=== PATIENT | female | born 1990 | race Hispanic/Latino ===

== ENCOUNTER 2020-06-01 11:00 | Inpatient (IN) | payer OTHER ==
[~2020-06-01] VITALS: Ht 162.6 cm; Wt 58.1 kg
[2020-06-01] MEDS ORDERED: LIPITOR20 MG PO (11:26)
[2020-06-01] MEDS ORDERED: SODIUM CHLORIDE 0.9% 1000ML 1,000 ML IV STA (11:37)
[2020-06-01] MEDS ORDERED: KETOROLAC TROMETHAMINE 30 MG/ML VIAL IV NR (11:45)
[2020-06-01] MEDS ORDERED: CEFTRIAXONE SOD 1 GM/NS 50 ML 50 ML IV ONE ×2 (11:45→11:52)
[2020-06-01] MEDS ORDERED: SODIUM CHLORIDE FLUSH 10 ML SYR INJ PRN ×2 (11:45→15:30)
[2020-06-01] MEDS ORDERED: ONDANSETRON HCL INJ 2MG/ML 2ML 2 MG/ML VIAL IV NR (11:45)
[2020-06-01] MEDS ORDERED: KETOROLAC TROMETHAMINE 30 MG/ML VIAL ONE (11:52)
[2020-06-01] MEDS ORDERED: ONDANSETRON HCL INJ 2MG/ML 2ML 2 MG/ML VIAL ONE (11:52)
[2020-06-01] MEDS ORDERED: SODIUM CHLORIDE 0.9% 1000ML 1,000 ML ONE (11:52)
--- NOTE | 2020-06-01 12:18 | Emergency Department Note ---
History of Present Illnes History of Present Illness Chief Complaint: LEFT LBP History of Present Illness This is a 29 year old female. was doing well until 2 weeks ago then suprapubic pain, urgency . did a televist with pc and dx pt with uti and rx cipro in which pt finished 1 days ago. then left lbp +similar to kidney stone pain, +n/v Historian: Patient Arrival Mode: Car History limited by: condition of the patient (normal) Director Of Revenue Cycle Management Required: No Onset (how long ago): day(s) (3) Location: see above Quality: see above Radiation: Reports back Severity: severe Onset quality: gradual Duration (how long): day(s) (3) Progression: worsening Chronicity: new Context: Denies recent illness, Denies recent surgery, Denies recent immobilization, Denies recent travel, Denies trauma/injury, Denies new medications, Denies hx of DVT/PE, Denies non-compliance w/ medications Relieving factors: none Exacerbating factors: movement Associated symptoms: Reports nausea/vomiting Treatments prior to arrival: none Past Medical/Family History Physician Review I have reviewed the patient's past medical and family history. Any updates have been documented here. Past Medical History Past Medical History: Kidney Stones, Hyperlipedemia Other Surgery: ovarian cyst 2018 Social History Smoking Cessation: Never Smoker Counseling Performed: No Alcohol Use: None Any Illegal Drug Use: No Physically hurt or threatened: No Other Any Pre-Existing Lines (PICC,: No Review of Systems Review of Systems Constitutional: Reports no symptoms EENTM: Reports no symptoms Cardiovascular: Reports no symptoms Respiratory: Reports no symptoms Gastrointestinal: Reports as per HPI Genitourinary: Reports no symptoms Musculoskeletal: Reports as per HPI Integumentary: Reports no symptoms Neurological: Reports no symptoms Psychological: Reports no symptoms Endocrine: Reports no symptoms Hematological/Lymphatic: Reports no symptoms Physical Exam Related Data Allergies: Coded Allergies: No Known Allergies (Unverified , 06/01/20) Vital signs reviewed: Yes Physical Exam CONSTITUTIONAL Constitutional: Present well-developed, Present well-nourished HENT HENT: Present normocephalic, Present atraumatic, Present oropharynx clear/moist, Present nose normal HENT L/R: Present left ext ear normal, Present right ext ear normal EYES Eyes: Reports PERRL, Reports conjunctivae normal NECK Neck: Present ROM normal PULMONARY Pulmonary: Present effort normal, Present breath sounds normal CARDIOVASCULAR Cardiovascular: Present regular rhythm, Present heart sounds normal, Present capillary refill normal, Present normal rate GASTROINTESTINAL Abdominal: Present soft, Present bowel sounds normal, Present tender (suprapubic tenderness), Present left CVA tenderness; Absent guarding, Absent mass GENITOURINARY Genitourinary: Present exam deferred SKIN Skin: Present warm, Present dry MUSCULOSKELETAL Musculoskeletal: Present ROM normal NEUROLOGICAL Neurological: Present alert, Present oriented x 3, Present no gross motor or sensory deficits PSYCHOLOGICAL Psychological: Present mood/affect normal, Present judgement normal Results Laboratory Lab results reviewed: Yes Laboratory comments cbc normal except wbc=12,000, bmp normal lft normal, ua= + blood/+leuk Imaging Imaging results reviewed: Yes Impressions [place] [address] Patient Name: LILLIANA MICHAEL MR #: [id number] : 1990 Age/Sex: 29/F Req #: [id number] Adm Physician: Ordered by: KALE HAYES Report #: [id number] Location: [facility] Room/Bed: Procedure: [id number] HOPD/CT ABD/PEL WO CONTRAST-HOPD Exam Date: 06/01/20 Exam Time: 1333 REPORT STATUS: Signed EXAM: CT Abdomen and Pelvis WITHOUT contrast INDICATION: low back pain r/o kidney stone COMPARISON: None. TECHNIQUE: Abdomen and pelvis were scanned utilizing a multidetector helical scanner from the lung base to the pubic symphysis without administration of IV contrast. Absence of intravenous contrast decreases sensitivity for detection of focal lesions and vascular pathology. Coronal and sagittal reformations were obtained. Routine protocol was performed. IV CONTRAST: None ORAL CONTRAST: None COMPLICATIONS: None RADIATION DOSE: Total DLP: 527 mGy*cm Estimated effective dose: (DLP x 0.015 x size factor) mSv CTDIvol has been reviewed. It is below the limits set by the Radiation Protocol Committee (RPC). Dose modulation, iterative reconstruction, and/or weight based adjustment of the mA/kV was utilized to reduce the radiation dose to as low as reasonably achievable. FINDINGS: LINES and TUBES: None. LOWER THORAX: Unremarkable HEPATOBILIARY: No focal hepatic lesions. No biliary ductal dilation. GALLBLADDER: No radio-opaque stones or sludge. No wall thickening. SPLEEN: No splenomegaly. PANCREAS: No focal masses or ductal dilatation. ADRENALS: No adrenal nodules KIDNEYS/URETERS: There is a 3 mm obstructive stone in the left ureterovesicular junction with mild left hydroureteronephrosis. There is a 4 mm nonobstructive stone in the inferior pole of the right kidney. GI TRACT: No abnormal distention, wall thickening, or evidence of bowel obstruction. Appendix is normal. PELVIC ORGANS/BLADDER: Unremarkable. LYMPH NODES: No lymphadenopathy. VESSELS: Unremarkable. PERITONEUM / RETROPERITONEUM: No free air or fluid. BONES: Unremarkable. SOFT TISSUES: Unremarkable. IMPRESSION: 1. 3 mm obstructive stone in the left ureterovesicular junction with mild left hydroureteronephrosis. 2. 4 mm nonobstructive stone in the inferior pole of the right kidney. Signed by: Jann Isbell MD on 06/01/2020 2:53 PM Dictated By: JANN ISBELL MD [id number] Transcribed By: QUYNH on 06/01/20 1453 COPY TO: KALE HAYES~ Critical Care Time Comments spoke to dr ree mathews at 1517hrs and will see pt , spoke to medical billing and coding instructor pieter soto(dr macdonald ) at 1522hrs and accepts admission of pt Assessment & Plan Medical Decision Making MDM UTI, KIDNEY STONE Reassessment Reassessment time: 13:30 Reassessment pain relieved Assessment & Plan Final Impression: (1) Ureterolithiasis (2) UTI (urinary tract infection) Depart Disposition: ADMITTED Home Meds Reported Medications Atorvastatin Calcium (LIPITOR) 20 Mg Tablet, 80 MG PO HS, TAB 06/01/20 Medications in the ED Sodium Chloride 10 ml PRN PRN INJ IV SITE FLUSH; Start 06/01/20 at 11:45; Stop 07/01/20 at 11:44 Ceftriaxone Sodium 50 ml @ 100 mls/hr ONCE ONCE IV Last administered on 06/01/20at 11:50; Admin Dose 100 MLS/HR; Start 06/01/20 at 11:45; Stop 06/01/20 at 12:14 Ketorolac Tromethamine 30 mg ONCE IV ; Start 06/01/20 at 11:45; Stop 06/01/20 at 12:59 Ondansetron HCl 4 mg NOW IV ; Start 06/01/20 at 11:45; Stop 06/01/20 at 12:59 Sodium Chloride 1,000 ml @ 1,000 mls/hr Q1H STAT IV Last administered on 06/01/20at 11:50; Admin Dose 1,000 MLS/HR; Start 06/01/20 at 11:37; Stop 06/01/20 at 12:36 Ondansetron HCl 4 mg STK-MED ONCE .ROUTE ; Start 06/01/20 at 11:52; Stop 06/01/20 at 11:48; Status DC Ketorolac Tromethamine 30 mg STK-MED ONCE .ROUTE ; Start 06/01/20 at 11:52; Stop 06/01/20 at 11:48; Status DC Ceftriaxone Sodium 50 ml @ ud STK-MED ONCE IV ; Start 06/01/20 at 11:52; Stop 06/01/20 at 11:48; Status DC Sodium Chloride 1,000 ml @ ud STK-MED ONCE .ROUTE ; Start 06/01/20 at 11:52; Stop 06/01/20 at 11:48; Status DC KALE HAYES Jun 01, 2020 12:18
--- NOTE | 2020-06-01 14:56 | Diagnostic Imaging Report ---
EXAM: CT Abdomen and Pelvis WITHOUT contrast INDICATION: low back pain r/o kidney stone COMPARISON: None. TECHNIQUE: Abdomen and pelvis were scanned utilizing a multidetector helical scanner from the lung base to the pubic symphysis without administration of IV contrast. Absence of intravenous contrast decreases sensitivity for detection of focal lesions and vascular pathology. Coronal and sagittal reformations were obtained. Routine protocol was performed. IV CONTRAST: None ORAL CONTRAST: None COMPLICATIONS: None RADIATION DOSE: Total DLP: 527 mGy*cm Estimated effective dose: (DLP x 0.015 x size factor) mSv CTDIvol has been reviewed. It is below the limits set by the Radiation Protocol Committee (RPC). Dose modulation, iterative reconstruction, and/or weight based adjustment of the mA/kV was utilized to reduce the radiation dose to as low as reasonably achievable. FINDINGS: LINES and TUBES: None. LOWER THORAX: Unremarkable HEPATOBILIARY: No focal hepatic lesions. No biliary ductal dilation. GALLBLADDER: No radio-opaque stones or sludge. No wall thickening. SPLEEN: No splenomegaly. PANCREAS: No focal masses or ductal dilatation. ADRENALS: No adrenal nodules KIDNEYS/URETERS: There is a 3 mm obstructive stone in the left ureterovesicular junction with mild left hydroureteronephrosis. There is a 4 mm nonobstructive stone in the inferior pole of the right kidney. GI TRACT: No abnormal distention, wall thickening, or evidence of bowel obstruction. Appendix is normal. PELVIC ORGANS/BLADDER: Unremarkable. LYMPH NODES: No lymphadenopathy. VESSELS: Unremarkable. PERITONEUM / RETROPERITONEUM: No free air or fluid. BONES: Unremarkable. SOFT TISSUES: Unremarkable. IMPRESSION: 1. 3 mm obstructive stone in the left ureterovesicular junction with mild left hydroureteronephrosis. 2. 4 mm nonobstructive stone in the inferior pole of the right kidney. Signed by: Michele Buckley MD on 06/01/2020 2:53 PM
--- NOTE | 2020-06-01 15:42 | NUR ---
urine cx collected
--- NOTE | 2020-06-01 16:24 | NUR ---
[facility] called to transport pt to room 212.
--- NOTE | 2020-06-01 16:26 | NUR ---
[facility] is 1.5 hours
--- NOTE | 2020-06-01 16:34 | NUR ---
Report to HARDEEP Butcher
--- NOTE | 2020-06-01 18:02 | NUR ---
RCD PT FROM [facility] BY BED PT IS ALERT AND ORIENTED PT RESTING ON BED VITALS CHECKED ,IV PATENT AND RUNNING NS 125 ,NO C/O PAIN ,ADMISSION ASSESSMENT AND HISTORY DONE INSTRUCTED THE PT AND FAMILY ABOUT HOSPITAL POLICY AND ROUTINE BED LOW AND LOCKED CALL LIGHT IN REACH ,
[2020-06-01 18:05] VITALS: BP 112/58
[2020-06-01] MEDS: SODIUM CHLORIDE 0.9% 1000ML 1,000 ML IV SCH (18:14)
[2020-06-01 18:31] VITALS: BP 112/58
[2020-06-01 18:35] VITALS: BP 112/50
--- NOTE | 2020-06-01 18:42 | NUR ---
PAGED DR JAMES AND TALKED THE CONSULTATION
--- NOTE | 2020-06-01 18:53 | NUR ---
PT RESTING ON BED BED SIDE REPOT GIVEN TO ONCOMING NURSE
[2020-06-01 20:00] VITALS: BP 111/75
[2020-06-01] MEDS: ATORVASTATIN 40 MG TAB PO SCH (20:03)
[2020-06-01] MEDS: ONDANSETRON HCL INJ 2MG/ML 2ML 2 MG/ML VIAL IV PRN (20:03)
[2020-06-01] MEDS: ACETAMINOPHEN 325 MG TAB PO PRN (20:03)
[2020-06-01] MEDS: MORPHINE SULFATE 2 MG/ML SYR 1ML IV PRN (20:03)
[2020-06-01] MEDS ORDERED: HYDRALAZINE HCL 20 MG/ML VIAL IV PRN (20:45)
[2020-06-01] MEDS ORDERED: POLYETHYLENE GLYCOL 3350 17 GM PACK PO PRN (20:45)
[2020-06-01] MEDS ORDERED: TEMAZEPAM 7.5 MG CAP PO PRN (20:45)
[2020-06-01 21:00] VITALS: BP 111/75
[2020-06-01] MEDS ORDERED: TEMAZEPAM 15 MG CAP PO PRN (21:00)
--- NOTE | 2020-06-01 22:29 | History and Physical ---
PRIMARY CARE PHYSICIAN: Dr. Shawn Black. CONSULTING PHYSICIANS: Dr. Bob Ballard with Urology. CHIEF COMPLAINT: UTI, left flank pain. HISTORY OF PRESENT ILLNESS: The patient is a 29-year-old female admitted through [facility] ER with complaints of left flank pain, radiating to the left lower quadrant since 05/31, and vomited thrice today. The patient reports constant urge to void. The patient saw her PCP 2 weeks ago; was prescribed Cipro 500 mg every 12 hours x3 days, which she finished. She reports Cipro helped some, but she still had flank pain and was having to alternate Tylenol and ibuprofen every 6 hours for relief. She went to the [facility] due to continued unresolved pain. PAST MEDICAL HISTORY: Kidney stones, hyperlipidemia, migraines. PAST SURGICAL HISTORY: Ovarian cyst in 2018. FAMILY HISTORY: Father had hyperlipidemia, hypertension, CAD/CABG. Mother had hyperlipidemia and lung cancer. SOCIAL HISTORY: The patient lives with her . She works as a teacher. She denies any previous use of tobacco, alcohol, or illicit drugs. ALLERGIES: NO KNOWN ALLERGIES. HOME MEDICATIONS: Atorvastatin 80 mg daily, Aimovig for migraines self-injection monthly. REVIEW OF SYSTEMS: Fourteen-point review of systems was completed and the patient denies any problems with the following systems; constitutional, eyes, ears, nose, throat, respiratory, psychiatric, integumentary, cardiovascular, musculoskeletal, neurological, endocrine, immunological, hematologic/lymphatic. CONSTITUTIONAL: The patient denies chills or fever. She has had a weight gain of about 4 pounds recently. GENITOURINARY: As per history of present illness. Currently denies any pain. GASTROINTESTINAL: Vomited thrice today. Last bowel movement was yesterday. HEMATOLOGIC: Currently on menses. PHYSICAL EXAMINATION: VITAL SIGNS: Temperature 98.8, pulse 81, blood pressure 112/58, respirations 16, oxygen saturation 100% on room air. Height 5 feet 0. Weight 127 pounds, BMI 24.8. GENERAL: Supine in bed, in no acute distress, currently seen in room 212. LUNGS: Clear to auscultation. Respiratory pattern even and unlabored. No supplemental oxygen. HEENT: EOMI. Oropharynx clear. NECK: Supple. No lymphadenopathy, thyromegaly, or JVD. CARDIOVASCULAR: Regular rate and rhythm. No murmur. Normal saline infusing at 125 mL an hour into a peripheral IV. ABDOMEN: Bowel sounds positive. Soft, nontender. EXTREMITIES: With no pitting edema. No clubbing, cyanosis, or signs of DVT. NEUROLOGICAL: GCS 15. Nonfocal. LABORATORY DATA: Urinalysis with specific gravity greater than or equal to 1.03, moderate amount of blood, pH 6.0, protein 30 mg/dL. Negative for nitrites, trace amount of leukocyte esterase. Sodium 142, potassium 3.9, chloride 107, CO2 of 28, glucose 128, calcium 9.3, BUN 15, creatinine 0.8, alkaline phosphatase 63, ALT 22, AST 23, total bilirubin 0.7, albumin 3.9, total protein 7.2. WBC is 12.2, hemoglobin 13.3, hematocrit 41.6, and platelets 249. Urine culture and sensitivity has been collected, results are pending. IMAGING/OTHER: CT of the abdomen and pelvis showed 3 mm obstructive stone in the left ureterovesicular junction with mild left hydroureteronephrosis, 4 mm nonobstructive stone in the inferior pole of the right kidney. No 12-lead EKG results are noted. ASSESSMENT AND PLAN: 1. Acute urinary tract infection with leukocytosis (present on admission); failed outpatient treatment. The patient failed outpatient treatment with Cipro. Continue Rocephin daily and IV fluids of normal saline at 125 mL an hour. Follow up on final urine culture and sensitivity results. WBC is 12.2, currently afebrile. 2. Obstructive renal calculus, left ureterovesicular junction, and nonobstructive renal calculus in the inferior pole of right kidney, hematuria. Urology consulted. Strain urine. The patient is currently n.p.o. after midnight for any urological procedure tomorrow. Continue IV fluids. 3. Acute left flank pain. Pain control with morphine 4 mg q.4 hours p.r.n. 4. Vomiting. The patient denies nausea currently. Continue p.r.n. Zofran. Continue IV fluids for rehydration. 5. Hyperlipidemia. Resume home dose of Lipitor. We will get lipid panel. 6. Hyperglycemia. Blood glucose 128. No history of diabetes. We will check hemoglobin A1c level in the morning. 7. Prophylaxis, Pepcid, ambulatory. Inpatient, billing code [id number], time spent greater than 60 minutes. Dictated by Ronald Boone, PATENT ENGINEER MD AMRITA Maldonado/ZEYNEP /[id number]
[2020-06-01] MEDS: CEFTRIAXONE SOD 1 GM/NS 50 ML 50 ML IV SCH (23:35)
[2020-06-02] VITALS (7 sets, daily range): BP systolic 111–127; BP diastolic 63–86
[2020-06-02] MEDS: SODIUM CHLORIDE 0.9% 1000ML 1,000 ML IV SCH ×4 (02:47→23:29)
[2020-06-02 06:27] LABS: CHOL/HDL RATIO 3.3 (3.0-3.6); MAGNESIUM 1.6 MG/DL (1.3-2.1)
[2020-06-02 06:34] LABS: THYROID STIMULATING HORMONE 1.217 uIU/mL (0.350-4.940)
[2020-06-02 06:44] LABS: BASOPHILS % 0.3 % (0.0-1.0); EOSINOPHILS # (AUTO) 0.1 (0.0-0.4); EOSINOPHILS % 1.7 % (0.0-6.0); HEMOGLOBIN 10.5 g/dL (12.0-16.0); LYMPHOCYTES % 46.9 % (18.0-39.1); MEAN CORPUSCULAR HEMOGLOBIN 29.1 pg (28-32); MEAN CORPUSCULAR HGB CONC 33.9 g/dL (31-35); MEAN CORPUSCULAR VOLUME 85.9 fL (81-99); MONOCYTES # (AUTO) 0.4 (0.2-0.8); MONOCYTES % 6.2 % (4.4-11.3); NEUTROPHILS # (AUTO) 2.8 (2.1-6.9); NEUTROPHILS % 44.7 % (38.7-80.0); PLATELET COUNT 219 x10e3/uL (140-360); RED BLOOD COUNT 3.61 x10e6/uL (3.6-5.1); RED CELL DISTRIBUTION WIDTH 12.6 % (11.7-14.4)
[2020-06-02 06:53] LABS: ANION GAP 11.9 mmol/L (8-16); BLOOD UREA NITROGEN 8 mg/dL (7-26); BUN/CREATININE RATIO 13 (6-25); CARBON DIOXIDE 22 mmol/L (22-29); CHLORIDE 110 mmol/L (98-107); CREATININE, SERUM 0.62 mg/dL (0.57-1.11); EST GLOMERULAR FILTRATION RATE > 60 ML/MIN (60-); GLUCOSE 101 mg/dL (74-118); POTASSIUM 3.9 mmol/L (3.5-5.1); SODIUM 140 mmol/L (136-145)
--- NOTE | 2020-06-02 07:15 | NUR ---
RCD PT AT BED PT IS ALERT AND ORIENTED PT RESTING ON BED IV PATENT BED LOW AND LOCKED CALL LIGHT IN REACH
--- NOTE | 2020-06-02 07:15 | NUR ---
PAGED DR JAMES TO CLARIFY THE NPO
[2020-06-02] MEDS: FAMOTIDINE 20 MG/2 ML VIAL IV SCH ×2 (08:24→17:00)
[2020-06-02] MEDS: DOCUSATE SODIUM 100 MG CAP PO SCH ×2 (09:00→17:00)
[2020-06-02] MEDS: MORPHINE SULFATE 2 MG/ML SYR 1ML IV PRN (09:38)
[2020-06-02] MEDS: ONDANSETRON HCL INJ 2MG/ML 2ML 2 MG/ML VIAL IV PRN ×2 (09:39→18:00)
[2020-06-02] MEDS: CEFTRIAXONE SOD 1 GM/NS 50 ML 50 ML IV SCH ×2 (11:30→23:29)
[2020-06-02] MEDS ORDERED: MAGNESIUM SULFATE 2GM/50ML 50 ML IV ONE (12:00)
--- NOTE | 2020-06-02 13:21 | Consultation ---
DATE OF CONSULTATION: 06/02/2020 Urology Consultation REASON FOR CONSULTATION: Obstructive uropathy. HISTORY OF PRESENT ILLNESS: Stephania Lovell is a 29-year-old woman, who had a previous history of obstructive ureterolithiasis. The patient passed that stone, gave it to her prior urologist. She was apparently did not have ongoing followup and never had a 24-hour urine test as metabolic stone risk profile. The patient had left-sided flank pain, radiating to the left lower quadrant as well as urgency and urinary urgency, reported the emergency room, was found to have obstructive left ureterolithiasis and was subsequently admitted. The patient denies hematuria and dysuria and denies having any fevers. PAST MEDICAL AND SURGICAL HISTORY: 1. 1, para 1 by spontaneous vaginal delivery. 2. Right ovarian cyst, status post laparoscopic management. SOCIAL HISTORY: The patient denies smoking ethanol or drug use. She works at a high school. ALLERGIES: NONE KNOWN. CURRENT MEDICATIONS: Please refer to the MAR. REVIEW OF SYSTEMS: Discussed as above in the history of present illness and past medical history, otherwise negative for all systems. PHYSICAL EXAMINATION: GENERAL: Healthy-appearing 29-year-old woman, lying in bed, in no apparent distress. She is currently afebrile. VITAL SIGNS: Currently stable. ABDOMEN: Soft, nondistended, nontender without current costovertebral angle tenderness. Kidneys not palpable without hepatosplenomegaly. No obvious evidence of hernia. For the remaining physical examination systems, please refer to the admission history and physical in chart. LABORATORY STUDIES: CT scan of the abdomen and pelvis showed a left 3 mm intramural UVJ stone and a 4 mm right lower pole stone. Urine culture is pending and preliminary COVID test is currently pending. White blood cell count is 6290, hemoglobin 10.5, platelets 219,000. The patient's creatinine 0.62. Her calcium is low at 8.0. ASSESSMENT: 1. Left ureterolithiasis. 2. Left hydroureteronephrosis. 3. Right 4 mm lower pole stone. 4. Left renal colic. 5. Anemia. 6. Hypocalcemia. PLAN: 1. One stone passage trial due to the fact that she has passed previous stones. 2. Should the patient pass her stone, she would be okay to discharge her home with outpatient followup for right ESWL with cystoscopy and retrogrades. 3. The patient will need metabolic stone workup including a 24-hour urine when she is at her normal state of health and her stones have been managed. 4. Defer the hematological and electrolyte abnormalities to the primary team. 5. Strain all urine. 6. I will order to recheck the labs in the a.m. Thank you much for involving us in care of your patient. We will be happy to follow along with you as well as outpatient. Bob MD Elio OH/MODL /[id number] cc: Shawn Black III, MD
[2020-06-02] MEDS: ACETAMINOPHEN 325 MG TAB PO PRN (14:16)
--- NOTE | 2020-06-02 18:41 | NUR ---
PT RESTING ON BED BED SIDE REPORT GIVEN TO ONCOMING NURSE
--- NOTE | 2020-06-02 19:43 | Progress Note ---
DATE: CONSULTING PHYSICIAN: Bob Ballard MD with Urology. SUBJECTIVE: The patient is supine in bed with at bedside. The patient states earlier today she had left flank pain rated 4-5 on a scale of 0-10. After receiving pain medication, she now has no pain. She still has urgency. No chills. No dysuria. OBJECTIVE: VITAL SIGNS: Temperature 98.0, pulse 82, blood pressure 119/85, respirations 18, and oxygen saturation 99% on room air. Intake and output 1560 mL in, 300 mL out. GENERAL: Supine, no acute distress. LUNGS: Clear to auscultation. Respiratory pattern even and unlabored. HEENT: EOMI. NECK: Supple. CARDIOVASCULAR: Regular rate and rhythm. No murmur. Normal saline infusing at 75 mL an hour through a peripheral IV. ABDOMEN: Bowel sounds positive. Soft. Mild tenderness to gentle palpation. EXTREMITIES: No pitting edema. No clubbing, cyanosis, or signs of DVT. NEUROLOGICAL: GCS 15. Nonfocal. LABORATORY DATA: WBC 6.29 (12.2), hemoglobin 10.5, hematocrit 31, platelets 219, neutrophils 44.7%. Sodium 140, potassium 3.9, chloride 110, CO2 22, BUN 8, creatinine 0.62, glucose 101, hemoglobin A1c 4.8%, phosphorus 3.0, magnesium 1.6. TSH 1.217, triglycerides 90, cholesterol 197, LDL 120, HDL 59. 06/01 frederick virus PCR remains pending. Preliminary urine culture and sensitivity culture is in process. Re-intubation is required. IMAGING/OTHER: No new imaging studies. ASSESSMENT/PLAN: 1. Urinary tract infection with leukocytosis (POA); failed outpatient treatment. WBCs 6.29 (12.2). Continue Rocephin and IV fluids, normal saline rate has been decreased from 125 to 75 mL an hour. BUN 8, creatinine 0.62, afebrile. 2. Obstructive renal calculus, left UVJ and nonobstructive renal calculus in the inferior pole of the right kidney, hematuria. Urology following. Appreciate recommendations, stone passage trial. Urine is to be strained. No urological procedures today and patient is on a regular diet. 3. Acute left flank pain, improving. Continue pain control with morphine 4 mg IV every 4 hours p.r.n. 4. Vomiting, resolved. The patient reports no further vomiting. Continue Zofran p.r.n. and IV fluids. 5. Hyperlipidemia. Home dose of Lipitor continues. 6. Hyperglycemia, resolved. Serum blood glucose 101 (128). Hemoglobin A1c 4.8%. 7. Prophylaxis. Pepcid, ambulatory. Inpatient, billing code [id number], time spent greater than 35 minutes. Dictated by Ronald Boone, LUCIANA Jericho Gramajo MD [facility]/MODL /[id number]
[2020-06-02] MEDS: ATORVASTATIN 40 MG TAB PO SCH (20:00)
[2020-06-03] VITALS (8 sets, daily range): BP systolic 111–124; BP diastolic 74–79
[2020-06-03 06:09] LABS: BASOPHILS % 0.5 % (0.0-1.0); EOSINOPHILS # (AUTO) 0.1 (0.0-0.4); EOSINOPHILS % 1.7 % (0.0-6.0); HEMATOCRIT 32.5 % (34.2-44.1); LYMPHOCYTES # (AUTO) 2.8 (1.0-3.2); LYMPHOCYTES % 42.6 % (18.0-39.1); MEAN CORPUSCULAR HEMOGLOBIN 29.3 pg (28-32); MEAN CORPUSCULAR HGB CONC 33.8 g/dL (31-35); MEAN CORPUSCULAR VOLUME 86.7 fL (81-99); MONOCYTES # (AUTO) 0.4 (0.2-0.8); MONOCYTES % 6.1 % (4.4-11.3); NEUTROPHILS # (AUTO) 3.2 (2.1-6.9); NEUTROPHILS % 48.8 % (38.7-80.0); PLATELET COUNT 209 x10e3/uL (140-360); RED BLOOD COUNT 3.75 x10e6/uL (3.6-5.1); RED CELL DISTRIBUTION WIDTH 12.6 % (11.7-14.4)
[2020-06-03 06:35] LABS: ANION GAP 10.9 mmol/L (8-16); BLOOD UREA NITROGEN 6 mg/dL (7-26); BUN/CREATININE RATIO 10 (6-25); CALCIUM 8.4 mg/dL (8.4-10.2); CARBON DIOXIDE 25 mmol/L (22-29); CHLORIDE 110 mmol/L (98-107); CREATININE, SERUM 0.62 mg/dL (0.57-1.11); EST GLOMERULAR FILTRATION RATE > 60 ML/MIN (60-); GLUCOSE 94 mg/dL (74-118); MAGNESIUM 1.7 MG/DL (1.3-2.1); POTASSIUM 3.9 mmol/L (3.5-5.1); SODIUM 142 mmol/L (136-145)
--- NOTE | 2020-06-03 07:00 | NUR ---
BEDSIDE SHIFT REPORT RECEIVED FROM THE GASOLINE PUMP INSTALLER RN. EDUCATED PT ABOUT FALL PRECAUTIONS. PT VERBALIZED UNDERSTANDING. CALL LIGHT WITH IN EASY REACH. INSTRUCTED PT TO USE CALL LIGHT FOR ALL THE NEEDS. BED IS LOW AND LOCKED. SIDE RAILS X2. ALL SAFETY MEASURES IN PLACE. PT DENIES NEEDS AT THIS TIME.
[2020-06-03] MEDS: SODIUM CHLORIDE 0.9% 1000ML 1,000 ML IV SCH ×3 (07:04→23:18)
[2020-06-03] MEDS: FAMOTIDINE 20 MG/2 ML VIAL IV SCH ×2 (09:22→17:14)
[2020-06-03] MEDS: DOCUSATE SODIUM 100 MG CAP PO SCH ×2 (09:22→17:14)
[2020-06-03] MEDS: CEFTRIAXONE SOD 1 GM/NS 50 ML 50 ML IV SCH ×2 (12:13→23:18)
--- NOTE | 2020-06-03 15:41 | Diagnostic Imaging Report ---
Abdomen, one view AP INDICATION: ^TO EVALUATE STONES SEEN ON CT ^[id number] ^1450 ^Y Comparison: None available. Discussion: Redemonstration of a right inferior pole 3 mm calculus. The left UVJ calculus is not confidently visualized on this examination. Nonobstructive bowel gas pattern. No acute osseous abnormality. IMPRESSION: The known left ureterovesicular junction stone is not confidently visualized on this examination although the stone itself was also not visualized on the echocardiography radiology technologist image of the CT scan. The right inferior pole calculus is stable. Signed by: Major Colón MD on 06/03/2020 3:38 PM
[2020-06-03] MEDS: ACETAMINOPHEN 325 MG TAB PO PRN (18:38)
--- NOTE | 2020-06-03 19:00 | NUR ---
Resumed care of patient. Patient awake and resting in bed, no s/s of distress or c/o pain at this time. Continuing to strain urine as ordered. Bed locked and in lowest position, side rails upx2, call light placed within reach. Patient instructed to call for assistance if needed, verbalized understanding. All safety measures in place. Family at bedside.
--- NOTE | 2020-06-03 19:25 | NUR ---
BEDSIDE SHIFT REPORT GIVEN TO THE TEST INSPECTION ENGINEER RN. PT DENIED FURTHER NEEDS.
[2020-06-03] MEDS: ATORVASTATIN 40 MG TAB PO SCH (21:23)
[2020-06-04] VITALS (8 sets, daily range): BP systolic 109–140; BP diastolic 74–88
[2020-06-04 05:40] LABS: BASOPHILS % 0.3 % (0.0-1.0); EOSINOPHILS # (AUTO) 0.1 (0.0-0.4); EOSINOPHILS % 2.1 % (0.0-6.0); HEMATOCRIT 34.7 % (34.2-44.1); HEMOGLOBIN 11.7 g/dL (12.0-16.0); LYMPHOCYTES # (AUTO) 2.8 (1.0-3.2); LYMPHOCYTES % 42.1 % (18.0-39.1); MEAN CORPUSCULAR HEMOGLOBIN 28.7 pg (28-32); MEAN CORPUSCULAR HGB CONC 33.7 g/dL (31-35); MONOCYTES # (AUTO) 0.5 (0.2-0.8); MONOCYTES % 6.8 % (4.4-11.3); NEUTROPHILS # (AUTO) 3.2 (2.1-6.9); NEUTROPHILS % 48.5 % (38.7-80.0); PLATELET COUNT 237 x10e3/uL (140-360); RED BLOOD COUNT 4.08 x10e6/uL (3.6-5.1); RED CELL DISTRIBUTION WIDTH 12.5 % (11.7-14.4)
[2020-06-04 06:27] LABS: ALANINE AMINOTRANSFERASE 13 IU/L (0-55); ALBUMIN 3.5 g/dL (3.5-5.0); ALBUMIN/GLOBULIN RATIO 1.2 (0.8-2.0); ALKALINE PHOSPHATASE 58 IU/L (40-150); ANION GAP 9.6 mmol/L (8-16); BLOOD UREA NITROGEN 7 mg/dL (7-26); BUN/CREATININE RATIO 10 (6-25); CALCIUM 8.8 mg/dL (8.4-10.2); CARBON DIOXIDE 28 mmol/L (22-29); CHLORIDE 107 mmol/L (98-107); CREATININE, SERUM 0.67 mg/dL (0.57-1.11); EST GLOMERULAR FILTRATION RATE > 60 ML/MIN (60-); GLUCOSE 99 mg/dL (74-118); POTASSIUM 3.6 mmol/L (3.5-5.1); SODIUM 141 mmol/L (136-145)
[2020-06-04] MEDS: SODIUM CHLORIDE 0.9% 1000ML 1,000 ML IV SCH ×2 (06:59→16:39)
--- NOTE | 2020-06-04 07:00 | NUR ---
BEDSIDE SHIFT REPORT RECEIVED FROM THE TELEPHONE TRIAGE NURSE RN. EDUCATED PT ABOUT FALL PRECAUTIONS. PT VERBALIZED UNDERSTANDING. CALL LIGHT WITH IN EASY REACH. INSTRUCTED PT TO USE CALL LIGHT FOR ALL THE NEEDS. BED IS LOW AND LOCKED. SIDE RAILS X2. ALL SAFETY MEASURES IN PLACE. PT DENIES NEEDS AT THIS TIME.
--- NOTE | 2020-06-04 07:21 | Progress Note ---
DATE: CONSULTING PHYSICIAN: Dr. Bob Ballard with Urology. SUBJECTIVE: The patient has been walking in the halls often. She states she used Tylenol for pain at the left lower quadrant and pain level is currently 0/10. She denies chills, fever, dysuria, headache, nausea, or vomiting. She did have a bowel movement today. OBJECTIVE: VITAL SIGNS: Temperature 98.5, pulse 70, blood pressure 114/74, respirations 20, oxygen saturation 99% on room air. GENERAL: Supine, in no acute distress. LUNGS: Clear to auscultation. Respiratory pattern even and unlabored. HEENT: EOMI. Oropharynx clear. NECK: Supple. No lymphadenopathy, thyromegaly, or JVD. CARDIOVASCULAR: Regular rate and rhythm without murmur. Normal saline infusing at 125 mL an hour into a peripheral IV. ABDOMEN: Bowel sounds positive. Soft, tender to gentle palpation. EXTREMITIES: No pitting edema. No clubbing, cyanosis, or signs of DVT. NEUROLOGICAL : GCS 15. Nonfocal. LABORATORY DATA: WBC is 6.59, hemoglobin 11, hematocrit 32.5, and platelets 209. Sodium 142, potassium 3.9, chloride 110, CO2 of 25, anion gap 10.9, BUN 6, creatinine 0.62, estimated GFR greater than 60, glucose 94, uric acid 2.0, calcium 8.4, magnesium 1.7. On 06/01, coronavirus PCR not detected. Final urine culture collected on 06/01, shows 10,000 to 50,000 CFU per mL diphtheroids. IMAGING/OTHER: Abdomen x-ray, known left ureterovesicular junction stone is not confidently visualized on this examination, although the stone itself was also not visualized on the quality control tech raw materials image of the CT scan. The right inferior pole calculus is stable. ASSESSMENT AND PLAN: 1. Acute urinary tract infection with leukocytosis (present on admission); failed outpatient treatment on Cipro. Continue IV fluids and daily Rocephin. WBC is 6.59 (6.29). Await final urine culture and sensitivity results. 2. Obstructive renal calculus, left ureterovesicular junction as well as nonobstructive renal calculus in the inferior pole of the right kidney, hematuria. Urology following. Continue to strain urine. Continue IV fluids and encourage oral fluids. Continue stone passage trial; if this fails and stone is not passed, then the patient will likely have surgery on Wednesday, 06/05. 3. Acute left flank pain. Pain control with morphine. 4. Vomiting, resolved. Continue p.r.n. Zofran and IV fluids. 5. Hyperlipidemia. Continue home dose of Lipitor. Lipid panel within normal limits on 06/02. 6. Prophylaxis. Pepcid, ambulatory. Inpatient, billing code [id number], time spent greater than 35 minutes. Dictated by Ronald Boone NP Jericho Gramajo MD [facility]/MODL /[id number]
[2020-06-04] MEDS: DOCUSATE SODIUM 100 MG CAP PO SCH ×2 (08:37→16:40)
[2020-06-04] MEDS: FAMOTIDINE 20 MG/2 ML VIAL IV SCH ×2 (08:37→16:39)
[2020-06-04] MEDS: CEFTRIAXONE SOD 1 GM/NS 50 ML 50 ML IV SCH ×2 (10:30→22:42)
--- NOTE | 2020-06-04 18:55 | NUR ---
BEDSIDE SHIFT REPORT GIVEN TO THE SUPERVISOR [employer] RN. PT DENIED FURTHER NEEDS
[2020-06-04] MEDS: ATORVASTATIN 40 MG TAB PO SCH (20:45)
[2020-06-05] VITALS (7 sets, daily range): BP systolic 105–130; BP diastolic 62–90
[2020-06-05] MEDS: SODIUM CHLORIDE 0.9% 1000ML 1,000 ML IV SCH ×3 (02:25→14:17)
[2020-06-05 04:58] LABS: BASOPHILS % 0.4 % (0.0-1.0); EOSINOPHILS # (AUTO) 0.2 (0.0-0.4); EOSINOPHILS % 2.1 % (0.0-6.0); HEMATOCRIT 32.9 % (34.2-44.1); HEMOGLOBIN 11.2 g/dL (12.0-16.0); LYMPHOCYTES # (AUTO) 3.1 (1.0-3.2); MEAN CORPUSCULAR HEMOGLOBIN 28.6 pg (28-32); MEAN CORPUSCULAR VOLUME 84.1 fL (81-99); MONOCYTES # (AUTO) 0.5 (0.2-0.8); MONOCYTES % 5.7 % (4.4-11.3); NEUTROPHILS # (AUTO) 4.7 (2.1-6.9); NEUTROPHILS % 55.4 % (38.7-80.0); PLATELET COUNT 231 x10e3/uL (140-360); RED BLOOD COUNT 3.91 x10e6/uL (3.6-5.1); RED CELL DISTRIBUTION WIDTH 12.3 % (11.7-14.4)
[2020-06-05 05:14] LABS: ANION GAP 10.9 mmol/L (8-16); BLOOD UREA NITROGEN 9 mg/dL (7-26); BUN/CREATININE RATIO 14 (6-25); CALCIUM 8.5 mg/dL (8.4-10.2); CARBON DIOXIDE 27 mmol/L (22-29); CHLORIDE 108 mmol/L (98-107); CREATININE, SERUM 0.63 mg/dL (0.57-1.11); EST GLOMERULAR FILTRATION RATE > 60 ML/MIN (60-); GLUCOSE 99 mg/dL (74-118); POTASSIUM 3.9 mmol/L (3.5-5.1); SODIUM 142 mmol/L (136-145)
--- NOTE | 2020-06-05 07:00 | NUR ---
BEDSIDE SHIFT REPORT RECEIVED FROM THE BRUSH FILLER HAND RN. EDUCATED PT ABOUT FALL PRECAUTIONS. PT VERBALIZED UNDERSTANDING. CALL LIGHT WITH IN EASY REACH. INSTRUCTED PT TO USE CALL LIGHT FOR ALL THE NEEDS. BED IS LOW AND LOCKED. SIDE RAILS X2. PT IS ON NPO. ALL SAFETY MEASURES IN PLACE. PT DENIES NEEDS AT THIS TIME.
[2020-06-05] MEDS: DOCUSATE SODIUM 100 MG CAP PO SCH ×2 (07:58→16:01)
[2020-06-05] MEDS ORDERED: IOPAMIDOL 300MG/ML 50ML INFUS..BTL IV ONE (07:58)
[2020-06-05] MEDS: FAMOTIDINE 20 MG/2 ML VIAL IV SCH ×2 (07:58→16:01)
[2020-06-05] MEDS ORDERED: B&O 60MG R/S 60 MG SUPP PR ONE (07:58)
--- NOTE | 2020-06-05 08:14 | NUR ---
PT OFF UNIT FOR PROCEDURE IN SAFE CONDITION.
[2020-06-05] MEDS ORDERED: FENTANYL CITRATE/PF 100MCG/2 ML INJ ONE (10:07)
--- NOTE | 2020-06-05 10:35 | NUR ---
PT IS BACK TO UNIT AFTER PROCEDURE. PT IS AAOX4. AT BEDSIDE. PT DENIES NEEDS AT THIS TIME.
[2020-06-05] MEDS: PHENAZOPYRIDINE HCL 100 MG TAB PO PRN ×2 (10:50→17:45)
[2020-06-05] MEDS: ONDANSETRON HCL INJ 2MG/ML 2ML 2 MG/ML VIAL IV PRN ×2 (10:52→15:33)
[2020-06-05] MEDS: HYDROMORPHONE 1MG/1ML INJ IV PRN ×2 (10:52→15:33)
[2020-06-05] MEDS: CEFTRIAXONE SOD 1 GM/NS 50 ML 50 ML IV SCH (11:30)
[2020-06-05] MEDS: ACETAMINOPHEN 325 MG TAB PO PRN ×2 (12:40→17:41)
[2020-06-05] MEDS: OXYBUTYNIN CHLORIDE 5 MG TAB PO SCH ×2 (14:11→15:32)
[2020-06-05] MEDS ORDERED: TYLENOL 3 (17:31)
[2020-06-05] MEDS ORDERED: DITROPAN XL5 MG PO (17:32)
[2020-06-05] MEDS ORDERED: LEVOFLOXACIN250 MG PO (17:33)
--- NOTE | 2020-06-05 17:45 | NUR ---
ISAAK TO D/C PT PER DR. JAMES AND DEIDRA CHOWDHURY.
--- NOTE | 2020-06-05 17:46 | NUR ---
PYRIDIUM TID PER DR. JAMES. OKAY TO GIVE TYLENOL NOW PER DEIDRA CHOWDHURY.
[2020-06-05] MEDS ORDERED: SEVOFLURANE INHAL SOLN 250 ML PEN BTL ONE (17:50)
[2020-06-05] MEDS ORDERED: DEXAMETHASONE SOD PHOS INJ 4 MG/ML VIAL ONE (17:50)
[2020-06-05] MEDS ORDERED: PROPOFOL IV EMULSION 10 MG/ML 20 ML VIAL ONE (17:50)
[2020-06-05] MEDS ORDERED: LIDOCAINE HCL 2% JELLY 5 ML TUBE ONE (17:50)
[2020-06-05] MEDS ORDERED: ONDANSETRON HCL INJ 2MG/ML 2ML 2 MG/ML VIAL ONE (17:50)
[2020-06-05] MEDS ORDERED: LIDOCAINE HCL 2% LOCAL INJ 5 ML SDV VIAL INJ ONE (17:50)
--- NOTE | 2020-06-05 18:20 | NUR ---
PT DISCHARGED HOME SAFELY WITH . IV REMOVED. TIP INTACT. DRESSING APPLIED. PRESCRIPTION GIVEN. D/C INSTRUCTION GIVEN AND PT VERBALIZED UNDERSTANDING. PT ESCORTED BY THE TECH TO THE PRIVATE AUTO AT THE FRONT ENTRANCE. PT DENIED FURTHER NEEDS.
--- NOTE | 2020-06-06 00:16 | Operative Report ---
DATE OF PROCEDURE: 06/05/2020 SURGEON: Bob Ballard MD PREOPERATIVE DIAGNOSES: 1. Right nephrolithiasis. 2. Distal left ureterolithiasis. 3. Left hydronephrosis due to stone. 4. Microscopic hematuria. 5. Urinary tract infection. POSTOPERATIVE DIAGNOSES: 1. Right nephrolithiasis. 2. Distal left ureterolithiasis. 3. Left hydronephrosis due to stone. 4. Microscopic hematuria. 5. Urinary tract infection. 6. Very minimal cystocele. OPERATIONS PERFORMED: Note these are staged procedures as part of multi-staged and multi-step process in managing the patient's urolithiasis. 1. Right-sided extracorporeal shockwave lithotripsy (separate procedure performed for the right side done with a separate approach). 2. Cystourethroscopy with bilateral ureteral catheterization and retrograde ureteropyelography (separate procedure performed for the microhematuria and urinary tract infection). 3. Interpretation of retrograde ureteropyelography. 4. Supervision of fluoroscopy. 5. Left ureteroscopy with stone manipulation and extraction (separate procedure performed for the left-sided distal ureteral stone). 6. Cystourethroscopy with insertion of left indwelling ureteral stent (separate procedure performed to relieve hydronephrosis). 7. Radiological services for supervision and interpretation of ureteroscopy. 8. Pelvic examination under anesthesia. SURGEON: Bob Ballard MD. ANESTHESIA: General. COMPLICATIONS: None. CLINICAL SUMMARY: Stephania Lovell is a 29-year-old woman with prior urolithiasis. The patient has had left renal colic and has failed to pass her distal left ureteral stone. This is despite intravenous hydration, intravenous analgesia as well as increased activity. The patient elected to proceed with surgery today in hopes of relieving her left ureter of its obstructing stone and moving one step closer to rendering her stone free. She is aware of the risks of bleeding, infection, injury to adjacent structures, need for additional procedures and elected to proceed. OPERATIVE PROCEDURE IN DETAIL: Informed consent was verified. Stephania Lovell was properly identified, taken to the operating room, placed on the lithotripsy table in the supine position. Anesthesia was uneventfully begun. The patient's right nephrolithiasis was localized with biplanar fluoroscopy. A total of 3000 shocks were delivered with excellent fragmentation noted. The patient was carefully and gently repositioned in dorsal lithotomy position with all pressure points well padded. Her genitalia were prepared and draped in usual sterile fashion. The cystoscope sheath with obturator in place was atraumatically inserted into the patient's urethra and bladder was drained. Panendoscopy of the urinary bladder revealed no suspicious mucosal lesions, no tumor and no stones and no diverticula were within the bladder lumen. The right ureteral orifice was unremarkable. The left ureteral orifice exhibited the tip of a stone buried within it. Ureteral catheter was used to cannulate each ureter and retrograde ureteropyelography performed. A guidewire was then placed in the left ureter and guided to the level of the patient's kidney. A semi-rigid ureteroscope was then inserted alongside the guidewire up into the left ureter, where we identified the stone that the patient has failed to pass. We grasped it with Nitinol tipless basket and extracted it atraumatically. With cystoscopic and fluoroscopic guidance, a left-sided indwelling ureteral stent was then placed, it was coiled in the patient's kidneys as well as the patient's bladder. The retaining suture was cut short. Interpretation of retrograde ureteropyelography contrast was instilled in retrograde fashion bilaterally. The right side exhibited no hydronephrosis, but did exhibit filling defect in the lower pole calyx corresponding to the fragmented stone and blood clots from the lithotripsy procedure. The left side exhibited hydroureteronephrosis down to the level, where there was blockage by the stone. The stent was in good position, coiled in the patient's kidney as well as the patient's bladder at the end of the case. The patient's bladder was drained. The cystoscope was withdrawn. Pelvic examination under anesthesia revealed a very minimal cephalad cystocele, but no abnormal palpable pelvic masses could be appreciated. There were no obvious mucosal lesions. There was an unusual mucosal bridge present on the right-hand side between the right side in the periurethral area and there was a small hole at the 11 o'clock position that whole created sort of a mucosal bridge, this is not believed to be clinically significant nor detrimental nor does it require operation in my opinion. The patient was then uneventfully reversed from anesthesia and taken to recovery room in stable condition. There were no complications to the procedure. The patient tolerated the procedure well. PLANS: Plans will be to discharge the patient home once her symptomatology has improved. We will plan to return to the operating room in several weeks to remove her stent, re-evaluate her ureter, and hopefully render her stent free and stone free at that time. In the meantime, she is to strain her urine, so that any stone fragments from the right ESWL may be captured and sent for chemical analysis. Ongoing urological followup is a must, including the definite need for metabolic stone workup and a long-standing urological relationship in hopes of preventing future stones. Bob Ballard MD [facility]/MODL /[id number] cc: Shawn Black III, MD
== END 2020-06-05 18:20 | disposition home or self-care (01) | DRG 660 ==
LOC: FSED 11:20 → ERHOLD 15:25 → MED/SURG2 18:03
PROVIDERS: ADMIT Internal Medicine; ATTEND Internal Medicine
PROC: BT141ZZ Fluoroscopy of Kidneys, Ureters and Bladder using Low Osmolar Contrast (ICD-10-PCS; 2020-06-05)
PROC: 0TC78ZZ Extirpation of Matter from Left Ureter, Via Natural or Artificial Opening Endoscopic (ICD-10-PCS; principal; 2020-06-05 08:30)
PROC: 0T778DZ Dilation of Left Ureter with Intraluminal Device, Via Natural or Artificial Opening Endoscopic (ICD-10-PCS; 2020-06-05 08:30)
PROC: 0TC68ZZ Extirpation of Matter from Right Ureter, Via Natural or Artificial Opening Endoscopic (ICD-10-PCS; 2020-06-05 08:30)
DX: N13.6 Pyonephrosis (principal); N13.8 Other obstructive and reflux uropathy; E83.51 Hypocalcemia; N23 Unspecified renal colic; N39.0 Urinary tract infection, site not specified; Z20.828 Contact with and (suspected) exposure to other viral communicable diseases; E78.5 Hyperlipidemia, unspecified; R73.9 Hyperglycemia, unspecified
CPT/HCPCS: 36415; 50590; 74018; 74176; 80048; 80053; 80061; 81003; 81025; 83036; 83735; 83970; 84100; 84443; 84550; 85025; 87086; 88300; 96374; 96375; 99284; C1758; C1769; C2617; J0696; J1100; J1170; J1885; J2001; J2270; J2405; J3010; J3475; J7030; U0002

== ENCOUNTER → 2020-06-26 | Day surgery (SDC) | payer OTHER ==
[2020-06-21 15:43] LABS: BASOPHILS % 0.4 % (0.0-1.0); EOSINOPHILS # (AUTO) 0.3 (0.0-0.4); EOSINOPHILS % 3.1 % (0.0-6.0); HEMOGLOBIN 12.7 g/dL (12.0-16.0); LYMPHOCYTES # (AUTO) 3.2 (1.0-3.2); LYMPHOCYTES % 35.2 % (18.0-39.1); MEAN CORPUSCULAR HEMOGLOBIN 28.4 pg (28-32); MEAN CORPUSCULAR HGB CONC 34.3 g/dL (31-35); MEAN CORPUSCULAR VOLUME 82.8 fL (81-99); MONOCYTES # (AUTO) 0.6 (0.2-0.8); MONOCYTES % 6.3 % (4.4-11.3); NEUTROPHILS % 54.7 % (38.7-80.0); PLATELET COUNT 295 x10e3/uL (140-360); RED BLOOD COUNT 4.47 x10e6/uL (3.6-5.1); RED CELL DISTRIBUTION WIDTH 12.3 % (11.7-14.4)
[2020-06-21 16:07] LABS: ANION GAP 13.9 mmol/L (8-16); BLOOD UREA NITROGEN 12 mg/dL (7-26); BUN/CREATININE RATIO 18 (6-25); CALCIUM 8.9 mg/dL (8.4-10.2); CARBON DIOXIDE 24 mmol/L (22-29); CHLORIDE 106 mmol/L (98-107); CREATININE, SERUM 0.65 mg/dL (0.57-1.11); EST GLOMERULAR FILTRATION RATE > 60 ML/MIN (60-); GLUCOSE 93 mg/dL (74-118); POTASSIUM 3.9 mmol/L (3.5-5.1); SODIUM 140 mmol/L (136-145)
[~2020-06-26] MED LIST: B&O 60MG R/S 60 MG SUPP PR ONE; CEFTRIAXONE SOD 1 GM/NS 50 ML 50 ML IV ONE; DEXAMETHASONE SOD PHOS INJ 4 MG/ML VIAL ONE; DITROPAN XL5 MG PO; FENTANYL CITRATE/PF 100MCG/2 ML INJ ONE; IBUPROFEN200 MG PO; IOPAMIDOL 300MG/ML 50ML INFUS..BTL IV ONE; LEVOFLOXACIN250 MG PO; LIDOCAINE HCL 2% JELLY 5 ML TUBE ONE; LIDOCAINE HCL 2% LOCAL INJ 5 ML SDV VIAL INJ ONE; LIPITOR20 MG PO; MIDAZOLAM HCL 2 MG/2 ML VIAL ONE; ONDANSETRON HCL INJ 2MG/ML 2ML 2 MG/ML VIAL ONE; PROPOFOL IV EMULSION 10 MG/ML 20 ML VIAL ONE; SEVOFLURANE INHAL SOLN 250 ML PEN BTL ONE; TYLENOL 3
[2020-06-26 09:25] VITALS: BP 114/72
== END | disposition home or self-care (01) ==
LOC: OR 05:36
PROVIDERS: ATTEND Urology
DX: N20.1 Calculus of ureter (principal); Z96.0 Presence of urogenital implants; N36.41 Hypermobility of urethra; N81.4 Uterovaginal prolapse, unspecified; Z01.812 Encounter for preprocedural laboratory examination; Z01.818 Encounter for other preprocedural examination; Z20.828 Contact with and (suspected) exposure to other viral communicable diseases
CPT/HCPCS: 36415; 52351; 74018; 74420; 80048; 81025; 85025; C1758; J0696; J1100; J2001 ×2; J2250; J2405; J2704; J3010; Q9967; U0002

== ENCOUNTER 2022-05-06 14:32 | Emergency (ER) | payer OTHER ==
[~2022-05-06] VITALS: Ht 152.4 cm; Wt 58.1 kg
[~2022-05-06 14:32] MED LIST changes: -B&O 60MG R/S 60 MG SUPP PR ONE; -CEFTRIAXONE SOD 1 GM/NS 50 ML 50 ML IV ONE; -DEXAMETHASONE SOD PHOS INJ 4 MG/ML VIAL ONE; -FENTANYL CITRATE/PF 100MCG/2 ML INJ ONE; -IOPAMIDOL 300MG/ML 50ML INFUS..BTL IV ONE; -LIDOCAINE HCL 2% JELLY 5 ML TUBE ONE; -LIDOCAINE HCL 2% LOCAL INJ 5 ML SDV VIAL INJ ONE; -MIDAZOLAM HCL 2 MG/2 ML VIAL ONE; -ONDANSETRON HCL INJ 2MG/ML 2ML 2 MG/ML VIAL ONE; -PROPOFOL IV EMULSION 10 MG/ML 20 ML VIAL ONE; -SEVOFLURANE INHAL SOLN 250 ML PEN BTL ONE
[2022-05-06] MEDS ORDERED: ONDANSETRON HCL INJ 2MG/ML 2ML 2 MG/ML VIAL ONE (15:02)
[2022-05-06] MEDS ORDERED: SODIUM CHLORIDE 0.9% 1000ML 1,000 ML ONE (15:02)
[2022-05-06] MEDS ORDERED: KETOROLAC TROMETHAMINE 30 MG/ML VIAL ONE (15:20)
[2022-05-06] MEDS ORDERED: ONDANSETRON HCL INJ 2MG/ML 2ML 2 MG/ML VIAL IV STA (15:22)
[2022-05-06] MEDS ORDERED: KETOROLAC TROMETHAMINE 30 MG/ML VIAL IV STA (15:22)
[2022-05-06] MEDS ORDERED: SODIUM CHLORIDE 0.9% 1000ML 1,000 ML IV ONE (15:30)
[2022-05-06] MEDS ORDERED: CEFUROXIME500 MG PO (17:18)
[2022-05-06] MEDS ORDERED: DITROPAN XL5 MG PO (17:19)
[2022-05-06] MEDS ORDERED: ONDANSETRON ODT4 MG PO (17:24)
[2022-05-06] MEDS ORDERED: KETOROLAC TROME10 MG PO (17:25)
[2022-05-06] MEDS ORDERED: CEFTRIAXONE 1 GM VIAL ONE (17:56)
== END 2022-05-06 18:20 | disposition home or self-care (01) ==
LOC: FSED 14:38
DX: R10.31 Right lower quadrant pain (principal); N13.2 Hydronephrosis with renal and ureteral calculous obstruction; M54.50 Low back pain, unspecified; E78.5 Hyperlipidemia, unspecified
CPT/HCPCS: 74176; 80053; 81003; 81025; 85025; 87086; 87186; 96374; 96376; 99284; J0696; J1885; J2405; J7030

== ENCOUNTER 2022-09-20 08:48 | Emergency (ER) | payer OTHER ==
[~2022-09-20] VITALS: Ht 152.4 cm; Wt 60.8 kg
[~2022-09-20 08:48] MED LIST changes: +CEFUROXIME500 MG PO; +KETOROLAC TROME10 MG PO; +ONDANSETRON ODT4 MG PO
[2022-09-20] MEDS ORDERED: PRENATA CHEWAB1 EACH (10:48)
== END 2022-09-20 12:40 | disposition home or self-care (01) ==
LOC: FSED 09:25
DX: O20.0 Threatened abortion (principal); D25.9 Leiomyoma of uterus, unspecified
CPT/HCPCS: 36415; 76801; 76817; 80053; 81003; 81025; 84702; 85025; 99283